=== PATIENT | male | born 1940 | race Caucasian/White ===

== ENCOUNTER 2016-09-15 07:45 | Inpatient (IN) | payer MEDICARE, OTHER ==
[~2016-09-15] VITALS: Ht 180.3 cm; Wt 66.1 kg
[2016-09-15] VITALS (8 sets, daily range): BP systolic 113–133; BP diastolic 62–75; PULSE 78–88; RESP 17–25; TEMP 97.5–98.6; O2SAT 92–97
[~2016-09-15 07:45] MED LIST: DOXY25S GT; SULF-154 GT; SULF1TAB47 GT
--- NOTE | 2016-09-15 08:08 | PD ---
HPI Chief Complaint: Respiratory Distress Time Seen by Provider: 07:55 Travel History International Travel<30 days: No Contact w/Intl Traveler<30days: No Traveled to known affect area: No History of Present Illness HPI The patient is a 75-year-old male who presents emergency department via EMS from the assisted for shortness of breath. 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 The patient states he developed shortness of breath yesterday, also complains of generalized pain. EMS provided the patient 2 albuterol treatments prior to arrival which improved the patient's symptoms. The patient denies any history of COPD, however, according to EMS the patient is chronically on 2 L of oxygen via nasal cannula. According to the assisted papers the patient complained of shortness of breath and was hypoxic after treatments at the assisted with an O2 sat of 90%. The patient also has been treated for rash over the last week which is somewhat pruritic. The patient denies any acute chest pain, nausea, vomiting, or abdominal pain. Patient is able to answer questions, speech is somewhat hard to understand, but the patient follows commands without difficulty. The patient's physician of record at the assisted is Dr. Shelley. [facility] Past Medical History Arthritis: No Asthma: No Autoimmune Disease: No Blood Disorders: No Anxiety: No Depression: Yes Heart Rhythm Problems: No Cancer: No Cardiovascular Problems: No High Cholesterol: Yes Chemotherapy: No Chest Pain: No Congestive Heart Failure: No COPD: No Cerebrovascular Accident: Yes Diabetes: Yes Endocrine: No GERD: Yes Glaucoma: No Genitourinary: No Headaches: No Hepatitis: No Hiatal Hernia: No Hypertension: Yes Immune Disorder: No Kidney Stones: No Musculoskeletal: No Neurologic: No Psychiatric: Yes Reproductive: No Respiratory: No Migraines: No Myocardial Infarction: No Radiation Therapy: No Renal Failure: No Seizures: No Sleep Apnea: No Thyroid Disease: No Ulcer: No Past Surgical History Abdominal Surgery: No AICD: No Appendectomy: No Arteriovenous Shunt: No Cardiac Surgery: No Cholecystectomy: No Ear Surgery: No Endocrine Surgery: No Genitourinary Surgery: No Gynecologic Surgery: No Insulin Pump: No Joint Replacement: No Oral Surgery: No Pacemaker: No Thoracic Surgery: No Tonsillectomy: Yes Social History Alcohol Use: No Tobacco Use: No Substance Use: No Allergies-Medications (Allergen,Severity, Reaction): Coded Allergies: Codeine (Verified Allergy, Severe, MAKES PT SLEEP "FOREVER" DOES NOT LIKE TO TAKE ANY FORM, 11/15/08) [place] Nut (Unverified Allergy, Unknown, 11/14/08) VERIFIED WITH PATIETN Uncoded Allergies: CODEINE (Allergy, Unknown, 01/09/03) NUTS (Allergy, Unknown, 01/09/03) Reported Meds & Prescriptions Reported Meds & Active Scripts Active Reported Reglan (Metoclopramide HCl) 5 Mg Tab 5 Mg PO QID Potassium Chloride ER (Potassium Chloride) 20 Meq Tab 20 Meq PO BID Poly-Iron 150 (Polysaccharide Iron Complex) 150 Mg Cap 150 Mg PO DAILY Novolog Inj (Insulin Aspart) 1,000 Unit/10 Ml Vial 0 SQ DIRECTED Sliding Scale as directed. Multiple Vitamin 1 Tab 1 Tab PO DAILY Mirtazapine 15 Mg Tab 15 Mg PO HS Metformin (Metformin HCl) 500 Mg Tab 500 Mg PO BIDPC With meals Lopressor Hct (Metoprolol-Hydrochlorothiazide) 50-25 Mg Tab 1 Tab PO DAILY Lisinopril 2.5 Mg Tab 2.5 Mg PO DAILY Ketoconazole Topical 2% Foam 1 Applic TOPICAL 2XWEEK Hydroxyzine HCl 25 Mg Tab 25 Mg PO QID Hydrocortisone Topical 1% Cream 1 Applic TOPICAL BID Hydrochlorothiazide 12.5 Mg Cap 12.5 Mg PO BID Guaifenesin ER 12 HR (Guaifenesin) 600 Mg Nancy 600 Mg PO BID Glucagon Emergency Inj Kit (Glucagon (Rdna) Inj Kit) 1 Mg Kit 1 Mg IM ONCE PRN Flomax (Tamsulosin HCl) 0.4 Mg Cap 0.4 Mg PO HS Erythromycin Ethylsuccinate Liq (Erythromycin Ethylsuccinate) 200 Mg/Ml Susp 200 Mg PO Q6H Clopidogrel (Clopidogrel Bisulfate) 75 Mg Tab 75 Mg PO DAILY Cormax Scalp Topical (Clobetasol Propionate) 0.05% Soln 1 Applic TOPICAL BID Baclofen 10 Mg Tab 10 Mg PO Q8HR PRN Ascorbic Acid 500 Mg Tab 500 Mg PO Review of Systems Except as stated in HPI: all other systems reviewed are Neg General / Constitutional: No: Fever HENT: No: Lightheadedness Cardiovascular: No: Chest Pain or Discomfort Respiratory: Positive: Shortness of Breath, No: Cough Gastrointestinal: No: Nausea, Vomiting, Abdominal Pain Skin: Positive Rash, Positive Itching Physical Exam Narrative GENERAL: Awake, alert, very pleasant 75-year-old male who appears his stated age and is in no obvious respiratory distress. SKIN: Focused skin assessment warm/dry. HEAD: Atraumatic. Normocephalic. EYES: No injection or drainage. ENT: No nasal bleeding or discharge. Dry mucous membranes.. NECK: Trachea midline. No JVD. CARDIOVASCULAR: Regular, heart rate in the 90s. RESPIRATORY: No accessory muscle use. Few scattered rhonchi in the bases bilateral. Few late expiratory wheezes in the upper lobes. GASTROINTESTINAL: Abdomen soft, non-tender, nondistended. Feeding tube in place. MUSCULOSKELETAL: Left BKA. Right lower extremity in a heel boot, previous amputation of the second toe. Full use of the left upper extremity. Right upper extremity is contracted at the elbow and wrist in flexion. Genitourinary: No erythema or drainage noted about the meatus. NEUROLOGICAL: Awake and alert. Speech is understandable, but mild dysarthria. Follows commands. Back: Stage I decubitus ulcer. PSYCHIATRIC: Appropriate mood and affect; insight and judgment normal. Data Data Last Documented VS Vital Signs Date Time Temp Pulse Resp B/P Pulse Ox O2 Delivery O2 Flow Rate FiO2 09/15/16 09:00 88 20 113/63 95 Nasal Cannula 3 09/15/16 07:50 98.6 Orders Complete Blood Count With Diff (09/15/16 08:02) Comprehensive Metabolic Panel (09/15/16 08:02) B-Type Natriuretic Peptide (09/15/16 08:02) Act Partial Throm Time (Ptt) (09/15/16 08:02) Prothrombin Time / Inr (Pt) (09/15/16 08:02) Magnesium (Mg) (09/15/16 08:02) Ckmb (Isoenzyme) Profile (09/15/16 08:02) Troponin I (09/15/16 08:02) Urinalysis - C+S If Indicated (09/15/16 08:02) Blood Culture (09/15/16 08:02) Iv Access Insert/Monitor (09/15/16 08:02) Electrocardiogram (09/15/16 08:02) Ecg Monitoring (09/15/16 08:02) Oximetry (09/15/16 08:02) Oxygen Administration (09/15/16 08:02) Chest, Single Ap (09/15/16 08:02) Cath For Specimen (09/15/16 08:02) Sodium Chloride 0.9% Flush (Ns Flush) (09/15/16 08:15) Albuterol-Ipratropium Neb (Duoneb Neb) (09/15/16 08:15) Lactic Acid (09/15/16 08:02) Furosemide Inj (Lasix Inj) (09/15/16 09:45) Aspirin (Aspirin) (09/15/16 10:30) Admit Order (Ed Use Only) (09/15/16 10:24) Labs Laboratory Tests Test 09/15/16 09/15/16 09/15/16 08:30 08:32 09:33 White Blood Count 9.4 TH/MM3 Red Blood Count 3.25 MIL/MM3 Hemoglobin 10.9 GM/DL Hematocrit 31.4 % Mean Corpuscular Volume 96.6 FL Mean Corpuscular Hemoglobin 33.6 PG Mean Corpuscular Hemoglobin 34.8 % Concent Red Cell Distribution Width 14.0 % Platelet Count 230 TH/MM3 Mean Platelet Volume 11.7 FL Neutrophils (%) (Auto) 81.3 % Lymphocytes (%) (Auto) 7.5 % Monocytes (%) (Auto) 9.0 % Eosinophils (%) (Auto) 1.5 % Basophils (%) (Auto) 0.7 % Neutrophils # (Auto) 7.7 TH/MM3 Lymphocytes # (Auto) 0.7 TH/MM3 Monocytes # (Auto) 0.9 TH/MM3 Eosinophils # (Auto) 0.1 TH/MM3 Basophils # (Auto) 0.1 TH/MM3 CBC Comment DIFF FINAL Differential Comment B-Type Natriuretic Peptide 1064 PG/ML Urine Color YELLOW Urine Turbidity CLEAR Urine pH 7.5 Urine Specific [place] 1.022 Urine Protein 30 mg/dL Urine Glucose (UA) NEG mg/dL Urine Ketones NEG mg/dL Urine Occult Blood NEG Urine Nitrite NEG Urine Bilirubin NEG Urine Urobilinogen 2.0 MG/DL Urine Leukocyte Esterase TRACE Urine RBC 1 /hpf Urine WBC 2 /hpf Urine Mucus FEW /lpf Microscopic Urinalysis Comment CULT NOT INDICATED Prothrombin Time 12.0 SEC Prothromb Time International 1.1 RATIO Ratio Activated Partial 24.8 SEC Thromboplast Time Sodium Level 137 MEQ/L Potassium Level 4.1 MEQ/L Chloride Level 102 MEQ/L Carbon Dioxide Level 27.4 MEQ/L Anion Gap 8 MEQ/L Blood Urea Nitrogen 36 MG/DL Creatinine 0.76 MG/DL Estimat Glomerular Filtration 100 ML/MIN Rate Random Glucose 171 MG/DL Lactic Acid Level 2.1 mmol/L Calcium Level 8.9 MG/DL Magnesium Level 2.1 MG/DL Total Bilirubin 0.4 MG/DL Aspartate Amino Transf 19 U/L (AST/SGOT) Alanine Aminotransferase 16 U/L (ALT/SGPT) Alkaline Phosphatase 84 U/L Total Creatine Kinase 95 U/L Troponin I 0.07 NG/ML Total Protein 7.6 GM/DL Albumin 3.0 GM/DL MDM Medical Decision Making Medical Screen Exam Complete: Yes Emergency Medical Condition: Yes Medical Record Reviewed: Yes Interpretation(s) EKG reveals normal sinus rhythm with a rate 87. Q wave noted in lead 2, 3, and aVF. Late transition in V5. Last Impressions Chest X-Ray 09/15/16 0802 Signed Impressions: Service Date/Time: Thursday, September 15, 2016 08:44 - CONCLUSION: Bibasilar infiltrates with cardiomegaly. The radiographic pattern suggests pulmonary edema. Sammy Byrnes Jr., MD Laboratory Tests Test 09/15/16 09/15/16 09/15/16 08:30 08:32 09:33 White Blood Count 9.4 TH/MM3 Red Blood Count 3.25 MIL/MM3 Hemoglobin 10.9 GM/DL Hematocrit 31.4 % Mean Corpuscular Volume 96.6 FL Mean Corpuscular Hemoglobin 33.6 PG Mean Corpuscular Hemoglobin 34.8 % Concent Red Cell Distribution Width 14.0 % Platelet Count 230 TH/MM3 Mean Platelet Volume 11.7 FL Neutrophils (%) (Auto) 81.3 % Lymphocytes (%) (Auto) 7.5 % Monocytes (%) (Auto) 9.0 % Eosinophils (%) (Auto) 1.5 % Basophils (%) (Auto) 0.7 % Neutrophils # (Auto) 7.7 TH/MM3 Lymphocytes # (Auto) 0.7 TH/MM3 Monocytes # (Auto) 0.9 TH/MM3 Eosinophils # (Auto) 0.1 TH/MM3 Basophils # (Auto) 0.1 TH/MM3 CBC Comment DIFF FINAL Differential Comment B-Type Natriuretic Peptide 1064 PG/ML Urine Color YELLOW Urine Turbidity CLEAR Urine pH 7.5 Urine Specific [place] 1.022 Urine Protein 30 mg/dL Urine Glucose (UA) NEG mg/dL Urine Ketones NEG mg/dL Urine Occult Blood NEG Urine Nitrite NEG Urine Bilirubin NEG Urine Urobilinogen 2.0 MG/DL Urine Leukocyte Esterase TRACE Urine RBC 1 /hpf Urine WBC 2 /hpf Urine Mucus FEW /lpf Microscopic Urinalysis Comment CULT NOT INDICATED Prothrombin Time 12.0 SEC Prothromb Time International 1.1 RATIO Ratio Activated Partial 24.8 SEC Thromboplast Time Sodium Level 137 MEQ/L Potassium Level 4.1 MEQ/L Chloride Level 102 MEQ/L Carbon Dioxide Level 27.4 MEQ/L Anion Gap 8 MEQ/L Blood Urea Nitrogen 36 MG/DL Creatinine 0.76 MG/DL Estimat Glomerular Filtration 100 ML/MIN Rate Random Glucose 171 MG/DL Lactic Acid Level 2.1 mmol/L Calcium Level 8.9 MG/DL Magnesium Level 2.1 MG/DL Total Bilirubin 0.4 MG/DL Aspartate Amino Transf 19 U/L (AST/SGOT) Alanine Aminotransferase 16 U/L (ALT/SGPT) Alkaline Phosphatase 84 U/L Total Creatine Kinase 95 U/L Troponin I 0.07 NG/ML Total Protein 7.6 GM/DL Albumin 3.0 GM/DL Differential Diagnosis Differential diagnosis includes pneumonia, bronchitis, aspiration, hypoxia, pulmonary embolism, pleural effusion, acute coronary syndrome, sepsis, UTI, dehydration, hyponatremia. Narrative Course IV was established, labs are drawn and sent, and the patient was placed on cardiac telemetry monitoring and continuous pulse oximetry monitoring. EKG was ordered and interpreted. Chest x-ray was obtained. The patient was administered DuoNeb 1. Lactic acid blood culture were sent to lab. Chest x- ray reveals bilateral pulmonary edema. Lactic acid minimally elevated at 2.1. The patient was administered Lasix 40 mg intravenously. The patient's BNP was greater than 1000, troponin was 0.07, most likely secondary to congestive heart failure. The patient was administered aspirin via the gastrostomy tube. The patient will be admitted for congestive heart failure with pulmonary edema, may require echocardiogram and diaphoresis. Therefore, the on-call medical service was paged for admission. Physician Communication Physician Communication The on-call medical service was paged for admission. I discussed the patient with the residents who agreed with admission. Diagnosis Primary Impression: Congestive heart failure Qualified Code: I50.9 - Acute congestive heart failure, unspecified congestive heart failure type Additional Impressions: Pulmonary edema Qualified Code: J81.0 - Acute pulmonary edema Hypoxia Elevated troponin Admitting Information Admitting Physician Requests: Admit Condition: Stable Ayo Krishna MD September 15, 2016 08:08
[2016-09-15] MEDS ORDERED: RESP: ALBUTEROL 2.5 MG/IPRATROPIUM 0.5 MG NEB (SCH) INH ONE (08:15)
[2016-09-15] MEDS ORDERED: SODIUM CHLORIDE 0.9% FLUSH 10 ML FLUSH IVF PRN (08:15)
[2016-09-15 08:47] LABS: AUTOMATED NEUTROPHIL # 7.7 TH/MM3 (1.8-7.7); BASOPHIL # 0.1 TH/MM3 (0-0.2); BASOPHIL % 0.7 % (0.0-2.0); EOSINOPHIL # 0.1 TH/MM3 (0-0.4); EOSINOPHIL % 1.5 % (0.0-4.0); HEMATOCRIT 31.4 % (39.0-51.0); HEMO FLAGS DIFF FINAL; LYMPH % 7.5 % (9.0-44.0); LYMPHOCYTE # 0.7 TH/MM3 (1.0-4.8); MEAN CELL VOLUME 96.6 FL (80.0-100.0); MEAN CORPUSCULAR HEMOGLOBIN 33.6 PG (27.0-34.0); MEAN CORPUSCULAR HGB CONC 34.8 % (32.0-36.0); NEUT % 81.3 % (16.0-70.0); PLATELET COUNT 230 TH/MM3 (150-450); RED BLOOD COUNT 3.25 MIL/MM3 (4.50-5.90); WHITE BLOOD COUNT 9.4 TH/MM3 (4.0-11.0)
[2016-09-15 09:01] LABS: BLOOD, URINE NEG (NEG); COMMENT (UR) CULT NOT INDICATED; CULTURE IF INDICATED CULT NOT INDICATED; GLUCOSE,URINE NEG (NEG); KETONE, URINE NEG (NEG); MUCUS URINE FEW /lpf (OCC); NITRITE,URINE NEG (NEG); PH, URINE 7.5 (5.0-8.5); URINE COLOR YELLOW (YELLW/STRAW)
--- NOTE | 2016-09-15 09:28 | RADRPT ---
EXAM DATE/TIME: 09/15/2016 08:44 [place] COMPARISON: No previous studies available for comparison. INDICATIONS : Congestion, short of breath. MEDICAL HISTORY : Stroke. SURGICAL HISTORY : Left leg BKA ENCOUNTER: Initial ACUITY: 1 day PAIN SCORE: Non-responsive. LOCATION: Bilateral chest FINDINGS: A single portable frontal view of the chest shows bilateral predominantly basilar infiltrates. Heart is enlarged. Pulmonary vascular engorgement noted. CONCLUSION: Bibasilar infiltrates with cardiomegaly. The radiographic pattern suggests pulmonary edema. Sammy Byrnes Jr., MD on September 15, 2016 at 9:18 Board Certified Radiologist. This report was verified electronically.
[2016-09-15] MEDS ORDERED: FUROSEMIDE 40 MG/4 ML VIAL IV PUSH ONE (09:45)
[2016-09-15] MEDS ORDERED: CLOP75TA PO (10:03)
[2016-09-15] MEDS ORDERED: TAMS5CAP PO (10:03)
[2016-09-15] MEDS ORDERED: ASCO500T PO (10:03)
[2016-09-15] MEDS ORDERED: ERYT1SUS5 PO (10:03)
[2016-09-15] MEDS ORDERED: BACL10TA PO (10:03)
[2016-09-15] MEDS ORDERED: CLOB-23 TOPICAL (10:03)
[2016-09-15] MEDS ORDERED: HYDR-3133 PO (10:08)
[2016-09-15] MEDS ORDERED: HYDR12.57 PO (10:08)
[2016-09-15] MEDS ORDERED: GUAI1TAB3 PO (10:08)
[2016-09-15] MEDS ORDERED: METF500T PO (10:08)
[2016-09-15] MEDS ORDERED: LISI2.5T3 PO (10:08)
[2016-09-15] MEDS ORDERED: NOVOLOGP2 SQ (10:08)
[2016-09-15] MEDS ORDERED: LOPR50TA PO (10:08)
[2016-09-15] MEDS ORDERED: MIRTA15 PO (10:08)
[2016-09-15] MEDS ORDERED: MULTTAB67 PO (10:08)
[2016-09-15] MEDS ORDERED: NU-IRON PO (10:08)
[2016-09-15] MEDS ORDERED: POTA-163 PO (10:08)
[2016-09-15] MEDS ORDERED: HYDR1CRE TOPICAL (10:08)
[2016-09-15] MEDS ORDERED: REGL5TAB PO (10:08)
[2016-09-15] MEDS ORDERED: GLUC1KIT IM (10:08)
[2016-09-15] MEDS ORDERED: KETO2AER TOPICAL (10:08)
[2016-09-15 10:10] LABS: ANION GAP 8 MEQ/L (5-15); APTT (PATIENT) 24.8 SEC (24.3-30.1); AST (GOT) 19 U/L (15-37); BICARBONATE 27.4 MEQ/L (21.0-32.0); BLOOD UREA NITROGEN 36 MG/DL (7-18); CHLORIDE 102 MEQ/L (98-107); GLOMERULAR FILTRATION RATE 100 ML/MIN (>89); INTERNATIONAL NORMALIZED RATIO 1.1 RATIO; MAGNESIUM 2.1 MG/DL (1.5-2.5); POTASSIUM 4.1 MEQ/L (3.5-5.1); SODIUM (NA) 137 MEQ/L (136-145)
[2016-09-15 10:15] LABS: ALKALINE PHOSPHATASE 84 U/L (45-117); ALT (GPT) 16 U/L (12-78); TOTAL BILIRUBIN ADULT 0.4 MG/DL (0.2-1.0)
[2016-09-15 10:19] LABS: CREATINE KINASE 95 U/L (39-308)
[2016-09-15] MEDS ORDERED: ASPIRIN 325 MG TAB G-TUBE ONE (10:30)
--- NOTE | 2016-09-15 12:59 | HHI.HP ---
HPI Service Family Medicine Primary Care Physician Unknown Admission Diagnosis congestive heart failure, pulmonary edema, hypoxia, elevated troponi Diagnoses: International Travel<30 Days: No Contact w/Intl Traveler<30days: No Known Affected Area: No History of Present Illness 75-year-old male [place] [facility] resident [facility] presents with a one to 2 day history of difficulty breathing. Patient is hemiplegic and normally gets around in a wheelchair. He states his symptoms started yesterday while lying in bed in the morning. Normally he lays flat on his right side. In the morning , however, while lying in bed he states he had difficulty breathing. Throughout the day this continued to worsen and he was becoming more short of breath and diaphoretic. I spoke with the nurse at the facility who gives a similar story. Can you to have difficulty breathing and it was determined to come to the emergency room. Of note, the patient has been having a rash for the last week or so involving his upper chest and extremities. A dermatology consult was placed and was said to be performed on 09/16. Patient stated he last had chest pain approximately 2 weeks ago. At that time it was 5 out of 10. Currently not having any chest pain. 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 Multiple Vitamin 1 Tab 1 Tab PO DAILY Mirtazapine 15 Mg Tab 15 Mg PO HS Metformin (Metformin HCl) 500 Mg Tab 500 Mg PO BIDPC With meals Lopressor Hct (Metoprolol-Hydrochlorothiazide) 50-25 Mg Tab 1 Tab PO DAILY Lisinopril 2.5 Mg Tab 2.5 Mg PO DAILY Ketoconazole Topical 2% Foam 1 Applic TOPICAL 2XWEEK Hydroxyzine HCl 25 Mg Tab 25 Mg PO QID Hydrocortisone Topical 1% Cream 1 Applic TOPICAL BID Hydrochlorothiazide 12.5 Mg Cap 12.5 Mg PO BID Guaifenesin ER 12 HR (Guaifenesin) 600 Mg Nancy 600 Mg PO BID Glucagon Emergency Inj Kit (Glucagon (Rdna) Inj Kit) 1 Mg Kit 1 Mg IM ONCE PRN Flomax (Tamsulosin HCl) 0.4 Mg Cap 0.4 Mg PO HS Erythromycin Ethylsuccinate Liq (Erythromycin Ethylsuccinate) 200 Mg/Ml Susp 200 Mg PO Q6H Clopidogrel (Clopidogrel Bisulfate) 75 Mg Tab 75 Mg PO DAILY [place]ax Scalp Topical (Clobetasol Propionate) 0.05% Soln 1 Applic TOPICAL BID Baclofen 10 Mg Tab 10 Mg PO Q8HR PRN Ascorbic Acid 500 Mg Tab 500 Mg PO (Young Bergeron MD R2) Allergies: Coded Allergies: Codeine (Verified Allergy, Severe, MAKES PT SLEEP "FOREVER" DOES NOT LIKE TO TAKE ANY FORM, 11/15/08) [place] Nut (Unverified Allergy, Unknown, 11/14/08) VERIFIED WITH PATIETN Uncoded Allergies: CODEINE (Allergy, Unknown, 01/09/03) NUTS (Allergy, Unknown, 01/09/03) Social History Lives in [facility]. Never . [employer]ism. 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 (Young Bergeron MD R2) Physical Exam Vital Signs Vital Signs Date Time Temp Pulse Resp B/P Pulse Ox O2 Delivery O2 Flow Rate FiO2 09/15/16 12:00 82 17 118/66 95 Nasal Cannula 3 09/15/16 10:00 80 17 113/62 93 Nasal Cannula 3 09/15/16 09:00 88 20 113/63 95 Nasal Cannula 3 09/15/16 08:20 96 Nasal Cannula 3 09/15/16 08:12 94 Nasal Cannula 3.00 09/15/16 07:50 87 25 93 Nasal Cannula 3 09/15/16 07:50 98.6 87 25 133/75 92 Physical Exam GENERAL: Elderly male with obvious contracture side lying comfortably, no acute distress SKIN: Stage I decubitus low back. Diffuse pruritic rash upper chest and upper arm. HEAD: Atraumatic. Normocephalic. No temporal or scalp tenderness. EYES: Pupils equal round and reactive. Extraocular motions intact. No scleral icterus. No injection or drainage. NECK: Trachea midline. No JVD or lymphadenopathy. Supple, nontender, no meningeal signs. CARDIOVASCULAR: Regular rate and rhythm. No murmurs rubs or gallops. RESPIRATORY:Scattered bilateral rhonchi in the bases bilaterally GASTROINTESTINAL: Abdomen soft, non-tender, nondistended. No hepato-splenomegaly , or palpable masses. No guarding. Gastrostomy tube in place without surrounding erythema. MUSCULOSKELETAL: Contracture of right arm. Full use of left upper extremity. Left BKA. Right lower extremity in heel boot. Amputation of second toe NEUROLOGICAL: Awake and alert. Appropriate insight and judgment. Follows commands. Speech understandable but slow. Mild dysarthria. Laboratory Laboratory Tests Test 09/15/16 09/15/16 09/15/16 08:30 08:32 09:33 White Blood Count 9.4 Red Blood Count 3.25 Hemoglobin 10.9 Hematocrit 31.4 Mean Corpuscular Volume 96.6 Mean Corpuscular Hemoglobin 33.6 Mean Corpuscular Hemoglobin 34.8 Concent Red Cell Distribution Width 14.0 Platelet Count 230 Mean Platelet Volume 11.7 Neutrophils (%) (Auto) 81.3 Lymphocytes (%) (Auto) 7.5 Monocytes (%) (Auto) 9.0 Eosinophils (%) (Auto) 1.5 Basophils (%) (Auto) 0.7 Neutrophils # (Auto) 7.7 Lymphocytes # (Auto) 0.7 Monocytes # (Auto) 0.9 Eosinophils # (Auto) 0.1 Basophils # (Auto) 0.1 CBC Comment DIFF FINAL Differential Comment B-Type Natriuretic Peptide 1064 Urine Color YELLOW Urine Turbidity CLEAR Urine pH 7.5 Urine Specific [place] 1.022 Urine Protein 30 Urine Glucose (UA) NEG Urine Ketones NEG Urine Occult Blood NEG Urine Nitrite NEG Urine Bilirubin NEG Urine Urobilinogen 2.0 Urine Leukocyte Esterase TRACE Urine RBC 1 Urine WBC 2 Urine Mucus FEW Microscopic Urinalysis Comment CULT NOT INDICATED Prothrombin Time 12.0 Prothromb Time International 1.1 Ratio Activated Partial 24.8 Thromboplast Time Sodium Level 137 Potassium Level 4.1 Chloride Level 102 Carbon Dioxide Level 27.4 Anion Gap 8 Blood Urea Nitrogen 36 Creatinine 0.76 Estimat Glomerular Filtration 100 Rate Random Glucose 171 Lactic Acid Level 2.1 Calcium Level 8.9 Magnesium Level 2.1 Total Bilirubin 0.4 Aspartate Amino Transf 19 (AST/SGOT) Alanine Aminotransferase 16 (ALT/SGPT) Alkaline Phosphatase 84 Total Creatine Kinase 95 Troponin I 0.07 Total Protein 7.6 Albumin 3.0 Date/Time Procedure Status Source Growth 09/15/16 08:30 Aerobic Blood Culture Received Blood Peripheral Pending 09/15/16 08:30 Anaerobic Blood Culture Received Blood Peripheral Pending (Young Bergeron MD R2) Result Diagram: 09/15/1630 09/15/16 0933 Imaging Last Impressions Chest X-Ray 09/15/16801 Signed Impressions: Service Date/Time: Thursday, September 15, 2016 08:44 - CONCLUSION: Bibasilar infiltrates with cardiomegaly. The radiographic pattern suggests pulmonary edema. Sammy Byrnes Jr., MD (Young Bergeron MD R2) Assessment and Plan Assessment and Plan 75-year-old [place] [facility] resident presents with one-day history of shortness of breath, fluid overload on chest x-ray. Concern for CHF exacerbation. Plan as below. Code Status Full Discussed Condition With Dr. Mckinnon (Young Bergeron MD R2) Attending Attestation Patient seen and examined. Case reviewed and discussed with the resident team. Agree with plan of care as discussed with me and documented in the resident note. pt seen in ED on admission (Susana Mckinnon MD) Problem List: (1) CHF exacerbation Status: Acute Plan: Findings and presentation concerning for CHF exacerbation. Cardiology consult to help with medication management. Patient received 40 mg IV Lasix in the emergency room. 2-D echo Oxygen as needed. Lasix 40 mg IV twice a day Patient is already on beta kev, CLAUDIA inhibitor, as below. Pending echo results, patient may need spironolactone and/or digoxin Trend troponins and EKGs 3 PM and 9 PM. Bed elevated 30-45. Daily weights and I's/O's (2) Hemiplegia Status: Acute Plan: Out of bed to chair 3 times a day. Physical therapy consult (3) Rash Status: Acute Plan: Unclear etiology at this time. Patient had a dermatology consult for tomorrow. He will not be able to make that. He has been getting hydrocortisone lotion at the [place] [facility]. (4) Stage 1 skin ulcer of sacral region Status: Acute Plan: Wound care nursing. Offload sacrum and heel Out of bed to chair 3 times a day PT consult (5) FEN/PPX Status: Acute Plan: Fluids: Hep-Lock IV as patient is fluid overloaded. Electrolytes: Monitor and replace when necessary Nutrition: Dietitian consult. Gastrostomy tube per dietitian. Normally patient gets Isosource 1.5 at 85 mL per hour 16 hours (on it 2 AMoff at 6 AM) Prophylaxis: Lovenox, SCD Chronic medical problems: Muscle spasm: Continue baclofen 10 mg History of stroke: Continue Plavix 75 mg daily Diabetes: Sliding scale insulin while inpatient. Adjust as needed. Hold home metformin High blood pressure: Continue hydrochlorothiazide 12.5 mg twice a day. Lisinopril 2.5 mg daily. Lopressor 25 mg twice a day. BPH: Continue Flomax Depression: Continue mirtazapine 15 mg Esophageal reflux: Continue Reglan 5 mg (Young Bergeron MD R2) Physician Certification 2 Midnight Certification Type: Admission for Inpatient Services Order for Inpatient Services The services are ordered in accordance with Medicare regulations or non- Medicare payer requirements, as applicable. In the case of services not specified as inpatient-only, they are appropriately provided as inpatient services in accordance with the 2-midnight benchmark. Estimated LOS (days): 2 days is the estimated time the patient will need to remain in the hospital, assuming treatment plan goals are met and no additional complications. Post-Hospital [facility] (Young Bergeron MD R2) Problem Qualifiers (1) CHF exacerbation: Qualified Code: I50.9 - Acute on chronic congestive heart failure, unspecified congestive heart failure type (2) Hemiplegia: Qualified Code: I69.151 - Hemiplegia of right dominant side due to nontraumatic intraparenchymal hemorrhage of brain, unspecified hemiplegia type Young Bergeron MD R2 September 15, 2016 12:59 Susana Mckinnon MD September 16, 2016 13:40
[2016-09-15] MEDS ORDERED: SODIUM CHLORIDE 0.9% FLUSH 10 ML FLUSH IV FLUSH PRN (14:00)
[2016-09-15] MEDS ORDERED: BACLOFEN 10 MG TAB PO PRN (14:30)
[2016-09-15] MEDS ORDERED: GLUCAGON 1 MG/ML VIAL OTHER PRN (14:45)
[2016-09-15] MEDS ORDERED: DEXTROSE 50% IN WATER 50 ML VIAL(D50) IV PRN (14:45)
[2016-09-15] MEDS: INSULIN ASPART SUPPLEMENTAL SCALE SQ SCH ×2 (16:00→21:00)
[2016-09-15] MEDS: FUROSEMIDE 40 MG/4 ML VIAL IVP SCH (16:34)
[2016-09-15] MEDS: hydrOXYzine HCL 25 MG TAB PO SCH ×2 (16:34→21:01)
[2016-09-15] MEDS: METOCLOPRAMIDE HCL 10 MG TAB PO SCH ×2 (16:34→21:00)
[2016-09-15] MEDS: ENOXAPARIN SODIUM 40 MG/0.4 ML SYRINGE SQ SCH (16:34)
[2016-09-15] MEDS: ERYTHROMYCIN ETHYLSUCCINATE 200 MG/5 ML SUSP 100 ML BOTTLE PO SCH ×2 (16:34→22:02)
--- NOTE | 2016-09-15 18:29 | MB ---
cc: DANIELE MOHR MD DATE OF CONSULTATION: 09/15/2016 REASON FOR CONSULTATION: 1. Congestive heart failure 2. Elevated troponin. HISTORY OF PRESENT ILLNESS: Mr. López is a 75 year-old man who is a [facility] resident of [facility] and presented with two days difficulty breathing. He is a difficult historian but does indicate that he has some difficulty breathing and is now back to normal. He denies any prior cardiac history, specifically denied any coronary artery disease or prior cardiac intervention to me. PAST MEDICAL HISTORY: 1. 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 2. Dysphagia. 3. Peripheral vascular disease. 4. Hyperlipidemia 5. Coronary artery disease. 6. Diabetes. 7. Hypertension. 8. Gastroesophageal reflux disease. 9. Depression. OUTPATIENT MEDICATIONS: 1. Reportedly include; Reglan. 2. Potassium. 3. Novolin 4. Metformin 5. Lopressor 6. Lisinopril 7. Ketoconazole 8. Hydrochlorothiazide 9. Hydrocortisone 10. Flomax 11. Glucagon 12. Erythromycin 13. Plavix. ALLERGIES CODEINE BRAZIL NUTS. SOCIAL HISTORY/FAMILY HISTORY/ REVIEW OF SYSTEMS: Per the record. PHYSICAL EXAMINATION: VITAL SIGNS: Temperature 97.5, pulse 84, respirations 20, blood pressure 125/72. IN GENERAL: He is an elderly man who is in no apparent distress. NECK: His neck is free from jugular venous distention. LUNGS: The lungs are bilaterally clear to auscultation. CARDIOVASCULAR SYSTEM: He has normal S1, S2, did not appreciate any murmurs rubs or gallops. ABDOMEN: The abdomen is soft. EXTREMITIES: The extremities are free from edema. RADIOLOGIC: X-ray show bibasilar infiltrate with cardiomegaly. LABORATORY VALUES: Significant for hemoglobin of 10.9, troponin of 0.07 with B-type natriuretic peptide of 106.4 and creatinine of 0.76. Electrocardiogram shows normal sinus rhythm with left axis deviation and a late transition. IMPRESSIONS: 1. Congestive heart failure; the patient does not have any prior cardiac history that he is able to convey to me. He does present with symptoms, chest x-ray, consistent with congestive heart failure. At this point I do agree with conservative measures and obtaining an echocardiogram. I do not believe that the patient is truly a revascularization candidate. The minor troponin elevation is also consistent with congestive heart failure. 2. History of cerebrovascular accident, being managed by primary team. 3. Hypertension; appears to be reasonably controlled at this time. Camryn Karimi /6:11 PM /6:20 PM
--- NOTE | 2016-09-15 20:01 | EC ---
Study Study Date:09/15/2016 STUDY CONCLUSIONS SUMMARY - Left ventricle: There is anteroapical akinesis and thinning, suggestive of scar. The cavity size was normal. Wall thickness was normal. Systolic function was moderately to severely reduced. The estimated ejection fraction was in the range of 30% to 35%. - Mitral valve: Mildly calcified annulus. Mild regurgitation. - Tricuspid valve: Mild regurgitation. If LV function is below 40, please consider prescribing an ACEI or ARB or document rationale for non-use. PROCEDURE DATA STUDY STATUS: Elective. Procedure: Transthoracic echocardiography. Image quality was fair. Scanning was performed from the parasternal and apical acoustic windows. Study completion: The patient tolerated the procedure well. Transthoracic echocardiography. M-mode, complete 2D, complete spectral Doppler, and color Doppler. Patient status: Inpatient. CARDIAC ANATOMY LEFT VENTRICLE: There is anteroapical akinesis and thinning, suggestive of scar. The cavity size was normal. Wall thickness was normal. Systolic function was moderately to severely reduced. The estimated ejection fraction was in the range of 30% to 35%. AORTIC VALVE: Trileaflet; normal thickness leaflets. Doppler: Transvalvular velocity was within the normal range. There was no stenosis. No regurgitation. Mean gradient: 4mm Hg (S). AORTA: Aortic root: The aortic root was normal in size. MITRAL VALVE: Mildly calcified annulus. Doppler: Transvalvular velocity was within the normal range. There was no evidence for stenosis. Mild regurgitation. Mean gradient: 2mm Hg (D). Peak gradient: 6mm Hg (D). LEFT ATRIUM: The atrium was normal in size. RIGHT VENTRICLE: The cavity size was normal. Wall thickness was normal. PULMONIC VALVE: Doppler: Transvalvular velocity was within the normal range. There was no evidence for stenosis. No regurgitation. TRICUSPID VALVE: Structurally normal valve. Doppler: Transvalvular velocity was within the normal range. Mild regurgitation. PULMONARY ARTERY: The main pulmonary artery was normal-sized. Systolic pressure was within the normal range. RIGHT ATRIUM: The atrium was normal in size. PERICARDIUM: There was no pericardial effusion. SYSTEMIC VEINS: Inferior vena cava: The vessel was normal in size. BASIC MEASUREMENTS ADULT Normal Left ventricle LV internal dimension, ED, chordal level, *54.1 mm 43-52 PLAX LV internal dimension, ES, chordal level, *46 mm 23-38 PLAX Fractional shortening, chordal level, PLAX *15 % >29 LV posterior wall thickness, ED 5.61 mm IVS/LVPW ratio, ED *1.53 <1.3 Ventricular septum Septal thickness, ED 8.59 mm Left atrium Anterior-posterior dimension 33 mm Right ventricle RV internal dimension, ED, PLAX 20 mm 19-38 DOPPLER MEASUREMENTS ADULT Normal Aortic valve Peak velocity, S 151 cm/s Mean velocity, S 96.7 cm/s VTI, S 44.6 cm Mean gradient, S 4 mm Hg Mitral valve Peak E-wave velocity 81.4 cm/s Peak A-wave velocity 75 cm/s Mean velocity, D 61.2 cm/s Mean gradient, D 2 mm Hg Peak gradient, D 6 mm Hg Peak E/A ratio 1.1 Maximal regurgitant velocity 375 cm/s Tricuspid valve Regurgitant peak velocity 365 cm/s Peak RV-RA gradient, S 53 mm Hg Maximal regurgitant velocity 365 cm/s LEGEND: Mean values are shown as u=mean value. Asterisk (*) man values outside specified normal range. Prepared and signed by Tala Bernard [id number]
[2016-09-15] MEDS: POTASSIUM CHLORIDE 20 MEQ CONTROLLED RELEASE TAB PO SCH (21:00)
[2016-09-15] MEDS: SODIUM CHLORIDE 0.9% FLUSH 10 ML FLUSH IV FLUSH SCH (21:00)
[2016-09-15] MEDS: HYDROCORTISONE 1% CREAM 30 GM TOPICAL SCH (21:00)
[2016-09-15] MEDS: MIRTAZAPINE 15 MG TAB PO SCH (21:00)
[2016-09-15] MEDS ORDERED: [UNRECOGNIZED DRUG - OTHER] TOPICAL SCH (21:00)
[2016-09-15] MEDS ORDERED: HYDROCHLOROTHIAZIDE 12.5 MG CAP PO SCH (21:00)
[2016-09-15] MEDS ORDERED: PATIENT OWN MEDICATION TOPICAL SCH (21:00)
[2016-09-15] MEDS: TAMSULOSIN HCL 0.4 MG CAP PO SCH (21:01)
[2016-09-16] VITALS (11 sets, daily range): BP systolic 104–158; BP diastolic 50–75; PULSE 72–98; RESP 16–20; TEMP 98.2–98.7; O2SAT 92–97
[2016-09-16] MEDS: ERYTHROMYCIN ETHYLSUCCINATE 200 MG/5 ML SUSP 100 ML BOTTLE PO SCH ×4 (05:45→21:44)
[2016-09-16] MEDS: INSULIN ASPART SUPPLEMENTAL SCALE SQ SCH ×4 (05:47→21:00)
[2016-09-16 05:57] LABS: AUTOMATED NEUTROPHIL # 3.9 TH/MM3 (1.8-7.7); BASOPHIL % 0.7 % (0.0-2.0); EOSINOPHIL # 0.7 TH/MM3 (0-0.4); EOSINOPHIL % 10.4 % (0.0-4.0); HEMATOCRIT 29.2 % (39.0-51.0); HEMO FLAGS DIFF FINAL; LYMPH % 14.3 % (9.0-44.0); LYMPHOCYTE # 0.9 TH/MM3 (1.0-4.8); MEAN CELL VOLUME 97.1 FL (80.0-100.0); MONO % 13.3 % (0.0-8.0); NEUT % 61.3 % (16.0-70.0); PLATELET COUNT 181 TH/MM3 (150-450); RED BLOOD COUNT 3.01 MIL/MM3 (4.50-5.90); RED CELL DISTRIBUTION WIDTH 13.8 % (11.6-17.2); WHITE BLOOD COUNT 6.4 TH/MM3 (4.0-11.0)
[2016-09-16 06:21] LABS: ALKALINE PHOSPHATASE 67 U/L (45-117); ALT (GPT) 14 U/L (12-78); ANION GAP 8 MEQ/L (5-15); AST (GOT) 19 U/L (15-37); BICARBONATE 32.5 MEQ/L (21.0-32.0); BLOOD UREA NITROGEN 31 MG/DL (7-18); CHLORIDE 102 MEQ/L (98-107); GLOMERULAR FILTRATION RATE 108 ML/MIN (>89); POTASSIUM 3.5 MEQ/L (3.5-5.1); SODIUM (NA) 142 MEQ/L (136-145); TOTAL BILIRUBIN ADULT 0.4 MG/DL (0.2-1.0)
[2016-09-16] MEDS ORDERED: POTASSIUM CHLORIDE 20 MEQ PWD PACKET G-TUBE ONE (08:00)
[2016-09-16] MEDS ORDERED: KETOCONAZOLE 2% SHAMPOO 120 ML BTL TOPICAL SCH (09:00)
[2016-09-16] MEDS ORDERED: METOPROLOL HYDROCHLOROTHIAZIDE PO SCH (09:00)
[2016-09-16] MEDS ORDERED: HYDROCHLOROTHIAZIDE 25 MG TAB PO SCH (09:00)
[2016-09-16] MEDS: POLYSACCHARIDE IRON COMPLEX 150 MG CAP PO SCH (09:01)
[2016-09-16] MEDS: hydrOXYzine HCL 25 MG TAB PO SCH ×4 (09:01→21:43)
[2016-09-16] MEDS: LISINOPRIL 5 MG TAB PO SCH (09:02)
[2016-09-16] MEDS: CLOPIDOGREL 75 MG TAB PO SCH (09:02)
[2016-09-16] MEDS: METOPROLOL TARTRATE 50 MG TAB PO SCH (09:02)
[2016-09-16] MEDS: POTASSIUM CHLORIDE 20 MEQ CONTROLLED RELEASE TAB PO SCH ×2 (09:02→21:00)
[2016-09-16] MEDS: METOCLOPRAMIDE HCL 10 MG TAB PO SCH (09:02)
[2016-09-16] MEDS: SODIUM CHLORIDE 0.9% FLUSH 10 ML FLUSH IV FLUSH SCH ×2 (09:02→21:00)
[2016-09-16] MEDS: FUROSEMIDE 40 MG/4 ML VIAL IVP SCH ×2 (09:02→18:09)
[2016-09-16] MEDS: HYDROCORTISONE 1% CREAM 30 GM TOPICAL SCH ×2 (09:03→21:46)
--- NOTE | 2016-09-16 10:44 | EKG ---
Date Performed: 09/15/2016 Time Performed: 20:34:26 PTAGE: 75 years EKG: Sinus rhythm POSSIBLE LEFT ATRIAL ENLARGEMENT INFERIOR MYOCARDIAL INFARCTION , PROBABLY OLD ANTEROSEPTAL MYOCARDI AL INFARCTION , OF INDETERMINATE AGE ABNORMAL ECG PREVIOUS TRACING : 09/15/2016 08.46 DOCTOR: William Leblanc Interpretating Date/Time 09/16/2016 10:42:08
--- NOTE | 2016-09-16 11:18 | HHI.HP ---
HPI Service Family Medicine Primary Care Physician Unknown Admission Diagnosis congestive heart failure, pulmonary edema, hypoxia, elevated troponi Diagnoses: (1) CHF exacerbation Diagnosis: Principal (2) Hemiplegia Diagnosis: Principal (3) Rash Diagnosis: Principal (4) Stage 1 skin ulcer of sacral region Diagnosis: Principal (5) FEN/PPX Diagnosis: Principal International Travel<30 Days: No Contact w/Intl Traveler<30days: No Known Affected Area: No History of Present Illness Mr López is a 75-year-old male [facility] resident of [facility] who presented with a one to 2 day history of difficulty breathing. Patient is hemiplegic and normally gets around in a wheelchair. He states his symptoms started the day before admission while lying in bed in the morning. Normally he lays flat on his right side. In the morning, however, while lying in bed he states he had difficulty breathing. Throughout the day this continued to worsen and he was becoming more short of breath and diaphoretic. I spoke with the nurse at the facility who gives a similar story. It was determined to come to the emergency room. Of note, the patient has been having a rash for the last week or so involving his upper chest and extremities. A dermatology consult was placed and was said to be performed on 09/16. Patient stated he last had chest pain approximately 2 weeks ago. At that time it was 5 out of 10. Currently not having any chest pain. Overnight, he has some diuresis and is breathing better. He is difficult to understand well but is more concerned with his rash today than his breathing. Review of Systems Other ROS Limitations: Speech Impaired, Poor Historian Constitutional: COMPLAINS OF: Chills, DENIES: Fever Eyes: DENIES: Blurred vision, Diplopia Respiratory: COMPLAINS OF: Cough, Shortness of breath Cardiovascular: COMPLAINS OF: Chest pain Gastrointestinal: COMPLAINS OF: Nausea, DENIES: Abdominal pain, Constipation, Diarrhea, Vomiting Neurologic: DENIES: Abnormal gait, Headache Psychiatric: DENIES: Anxiety, Confusion Past Family Social History Past Medical History Hemiplegia and hemiparesis following CVA affecting right side Dysphagia Peripheral vascular disease Contracture right hand Hyperlipidemia CAD Type 2 diabetes Hypertension GERD with esophagitis Major depressive disorder Anemia Gastrostomy tube Past Surgical History Gastrostomy tube Allergies: Coded Allergies: Codeine (Verified Allergy, Severe, MAKES PT SLEEP "FOREVER" DOES NOT LIKE TO TAKE ANY FORM, 11/15/08) [place] Nut (Unverified Allergy, Unknown, 11/14/08) VERIFIED WITH PATIETN Uncoded Allergies: CODEINE (Allergy, Unknown, 01/09/03) NUTS (Allergy, Unknown, 01/09/03) Social History Lives in [facility]. Never . Taoism. 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 Physical Exam Vital Signs Vital Signs Date Time Temp Pulse Resp B/P Pulse Ox O2 Delivery O2 Flow Rate FiO2 09/16/16 08:12 98.5 90 18 158/74 94 09/16/16 04:00 98.2 98 20 104/50 92 09/16/16 04:00 Nasal Cannula 3.00 09/16/16 00:00 Nasal Cannula 3.00 09/16/16 00:00 98.5 82 18 114/57 95 09/15/16 20:00 98.3 83 18 114/65 96 09/15/16 20:00 80 09/15/16 20:00 Nasal Cannula 3.00 09/15/16 16:52 78 09/15/16 16:00 97.5 84 20 125/72 97 09/15/16 15:50 Nasal Cannula 3.00 09/15/16 12:00 82 17 118/66 95 Nasal Cannula 3 Physical Exam GENERAL: Elderly male with obvious contracture side lying comfortably, no acute distress SKIN: Stage I decubitus low back. Diffuse pruritic rash upper chest and upper arms as well as legs and back. macular papular with some areas of excoriation. HEAD: Atraumatic. Normocephalic. EYES: Pupils equal round and reactive. Extraocular motions intact. No scleral icterus. No injection or drainage. NECK: Trachea midline. No JVD or lymphadenopathy. Supple, nontender, no meningeal signs. CARDIOVASCULAR: Regular rate and rhythm. No murmurs rubs or gallops. RESPIRATORY:Scattered bilateral rhonchi in the bases bilaterally GASTROINTESTINAL: Abdomen soft, non-tender, nondistended. No hepato-splenomegaly , or palpable masses. No guarding. Gastrostomy tube in place without surrounding erythema. MUSCULOSKELETAL: Contracture of right arm. Full use of left upper extremity. Left BKA. Right lower extremity in heel boot. Amputation of second toe NEUROLOGICAL: Awake and alert. Appropriate insight and judgment. Follows commands. Speech understandable but slow. Mild dysarthria. somewhat difficult to understand his spontaneous speech Laboratory Laboratory Tests Test 09/15/16 09/16/16 09/16/16 09/16/16 18:25 00:45 03:10 05:10 Troponin I 0.10 0.11 White Blood Count 6.4 Red Blood Count 3.01 Hemoglobin 9.9 Hematocrit 29.2 Mean Corpuscular Volume 97.1 Mean Corpuscular Hemoglobin 33.0 Mean Corpuscular Hemoglobin 34.0 Concent Red Cell Distribution Width 13.8 Platelet Count 181 Mean Platelet Volume 11.1 Neutrophils (%) (Auto) 61.3 Lymphocytes (%) (Auto) 14.3 Monocytes (%) (Auto) 13.3 Eosinophils (%) (Auto) 10.4 Basophils (%) (Auto) 0.7 Neutrophils # (Auto) 3.9 Lymphocytes # (Auto) 0.9 Monocytes # (Auto) 0.8 Eosinophils # (Auto) 0.7 Basophils # (Auto) 0.0 CBC Comment DIFF FINAL Differential Comment Sodium Level 142 Potassium Level 3.5 Chloride Level 102 Carbon Dioxide Level 32.5 Anion Gap 8 Blood Urea Nitrogen 31 Creatinine 0.71 Estimat Glomerular Filtration 108 Rate Random Glucose 205 Calcium Level 8.5 Magnesium Level 2.0 Total Bilirubin 0.4 Aspartate Amino Transf 19 (AST/SGOT) Alanine Aminotransferase 14 (ALT/SGPT) Alkaline Phosphatase 67 Total Protein 6.6 Albumin 2.6 Date/Time Procedure Status Source Growth 09/15/16 08:30 Aerobic Blood Culture - Preliminary Resulted Blood Peripheral NO GROWTH IN 1 DAY 09/15/16 08:30 Anaerobic Blood Culture - Preliminary Resulted Blood Peripheral NO GROWTH IN 1 DAY Result Diagram: 09/16/16 0310 09/16/16 0510 Imaging Last Impressions Chest X-Ray 09/15/16 08 Signed Impressions: Service Date/Time: Thursday, September 15, 2016 08:44 - CONCLUSION: Bibasilar infiltrates with cardiomegaly. The radiographic pattern suggests pulmonary edema. Sammy Byrnes Jr., MD Assessment and Plan Assessment and Plan 75-year-old [facility] resident presents with one-day history of shortness of breath, fluid overload on chest x-ray. Concern for CHF exacerbation. Plan as below. will try to decrease meds that may be unnecessary Problem List: (1) CHF exacerbation Status: Acute Plan: Findings and presentation concerning for CHF exacerbation. Cardiology consult to help with medication management. Patient received 40 mg IV Lasix in the emergency room. 2-D echo Oxygen as needed. Lasix 40 mg IV twice a day Patient is already on beta kev, CLAUDIA inhibitor, as below. Pending echo results, patient may need spironolactone and/or digoxin Trend troponins and EKGs 3 PM and 9 PM. Bed elevated 30-45. Daily weights and I's/O's (2) Hemiplegia Status: Acute Plan: Out of bed to chair 3 times a day. Physical therapy consult (3) Rash Status: Acute Plan: Unclear etiology at this time. Patient had a dermatology consult for tomorrow. He will not be able to make that. He has been getting hydrocortisone lotion at the [facility] can continue possible allergy or contact dermatitis or other etiology. does not appear vasculitic. very pruritic per pt. (4) Stage 1 skin ulcer of sacral region Status: Acute Plan: Wound care nursing. Offload sacrum and heel Out of bed to chair 3 times a day PT consult (5) FEN/PPX Status: Acute Plan: Fluids: Hep-Lock IV as patient is fluid overloaded. can adjust tube feeds and water flushes to control his fluid intake Electrolytes: Monitor and replace when necessary Nutrition: Dietitian consult. Gastrostomy tube per dietitian. Normally patient gets Isosource 1.5 at 85 mL per hour 16 hours (on it 2 AMoff at 6 AM) Prophylaxis: Lovenox, SCD Chronic medical problems: Muscle spasm: Continue baclofen 10 mg History of stroke: Continue Plavix 75 mg daily Diabetes: Sliding scale insulin while inpatient. Adjust as needed. Hold home metformin High blood pressure: Continue hydrochlorothiazide 12.5 mg twice a day. Lisinopril 2.5 mg daily. Lopressor 25 mg twice a day. BPH: Continue Flomax Depression: Continue mirtazapine 15 mg Esophageal reflux: Continue Reglan 5 mg Physician Certification 2 Midnight Certification Type: Admission for Inpatient Services Order for Inpatient Services The services are ordered in accordance with Medicare regulations or non- Medicare payer requirements, as applicable. In the case of services not specified as inpatient-only, they are appropriately provided as inpatient services in accordance with the 2-midnight benchmark. Estimated LOS (days): 3 3 days is the estimated time the patient will need to remain in the hospital, assuming treatment plan goals are met and no additional complications. Post-Hospital Plan: SNF Problem Qualifiers (1) CHF exacerbation: Qualified Code: I50.9 - Acute on chronic congestive heart failure, unspecified congestive heart failure type (2) Hemiplegia: Qualified Code: I69.151 - Hemiplegia of right dominant side due to nontraumatic intraparenchymal hemorrhage of brain, unspecified hemiplegia type Susana Mckinnon MD September 16, 2016 11:18
--- NOTE | 2016-09-16 11:19 | EKG ---
Date Performed: 09/15/2016 Time Performed: 08:46:03 PTAGE: 75 years EKG: Sinus rhythm MARKED LEFT AXIS DEVIATION POSSIBLE ANTERIOR MYOCARDIAL INFARCTION ABNORMAL ECG PREVIOUS TRACING : 03/23/2006 11.09 DOCTOR: William Leblanc Interpretating Date/Time 09/16/2016 11:16:26
--- NOTE | 2016-09-16 14:43 | PD.CARD.PN ---
Subjective Subjective Remarks Pt reports breathing better Objective Medications Current Medications Medications (Trade) Dose Ordered Sig/Vincent Route Start Time Stop Time Status Last Admin (NS Flush) 2 ml BID IV FLUSH 09/15/16 21:00 09/16/16 09:02 (NS Flush) 2 ml UNSCH PRN IV FLUSH 09/15/16 14:00 (Lasix Inj) 40 mg BID@09,18 IVP 09/15/16 18:00 09/16/16 09:02 (Lovenox Inj) 40 mg Q24H SQ 09/15/16 15:00 09/15/16 16:34 (Lioresal) 10 mg Q8H PRN PO 09/15/16 14:30 (Plavix) 75 mg DAILY PO 09/16/16 09:00 09/16/16 09:02 (Ees 200 Mg/5 ml Liq) 200 mg Q6H PO 09/15/16 16:00 09/16/16 09:01 (Hydrocortisone 1% Cream) 1 applic BID TOPICAL 09/15/16 21:00 09/16/16 09:03 (Atarax) 25 mg QID PO 09/15/16 18:00 09/16/16 09:01 (Remeron) 15 mg HS PO 09/15/16 21:00 09/15/16 21:00 (Nu-Iron) 150 mg DAILY PO 09/16/16 09:00 09/16/16 09:01 (KCl) 20 meq BID PO 09/15/16 21:00 09/16/16 09:02 (Flomax) 0.4 mg HS PO 09/15/16 21:00 09/15/16 21:01 (Nizoral 2% Shampoo) 1 applic 2XWEEK TOPICAL 09/16/16 09:00 (Prinivil) 2.5 mg DAILY PO 09/16/16 09:00 09/16/16 09:02 (Reglan) 5 mg QID PO 09/15/16 18:00 09/16/16 09:02 (D50w (Vial) Inj) 50 ml UNSCH PRN IV 09/15/16 14:45 (Glucagon Inj) 1 mg UNSCH PRN OTHER 09/15/16 14:45 Patient Own Medication PT OWN MED: CLOBETA... BID TOPICAL 09/15/16 21:00 Hold (Lopressor) 50 mg DAILY PO 09/16/16 09:00 09/16/16 09:02 Vital Signs / I&O Vital Signs Date Time Temp Pulse Resp B/P Pulse Ox O2 Delivery O2 Flow Rate FiO2 09/16/16 13:00 93 Nasal Cannula 3.00 09/16/16 12:33 98.7 81 19 118/55 96 09/16/16 08:12 98.5 90 18 158/74 94 09/16/16 04:00 98.2 98 20 104/50 92 09/16/16 04:00 Nasal Cannula 3.00 09/16/16 00:00 Nasal Cannula 3.00 09/16/16 00:00 98.5 82 18 114/57 95 09/15/16 20:00 98.3 83 18 114/65 96 09/15/16 20:00 80 09/15/16 20:00 Nasal Cannula 3.00 09/15/16 16:52 78 09/15/16 16:00 97.5 84 20 125/72 97 09/15/16 15:50 Nasal Cannula 3.00 I/O 09/15/16 09/15/16 09/15/16 09/16/16 09/16/16 09/16/16 07:00 15:00 23:00 07:00 15:00 23:00 Intake Total 0 ml 804 ml Output Total 0 ml Balance 0 ml 804 ml Intake Oral 0 ml 0 ml Tube Feeding 804 ml Output Urine Total 0 ml # Voids 1 # Bowel Movements 0 0 Physical Exam GENERAL: Well developed, well nourished. No acute distress. HEENT: Jugular venous pressure is normal. CHEST: Lungs clear to auscultation bilaterally. Unlabored respiratory effort. CARDIAC: Regular rate and rhythm without S3, S4, or murmur. ABDOMEN: Soft, nontender, no hepatosplenomegaly. Bowel sounds present. EXTREMITIES: No clubbing, cyanosis, or edema. Laboratory Laboratory Tests Test 09/15/16 09/16/16 09/16/16 09/16/16 18:25 00:45 03:10 05:10 Troponin I 0.10 NG/ML 0.11 NG/ML White Blood Count 6.4 TH/MM3 Red Blood Count 3.01 MIL/MM3 Hemoglobin 9.9 GM/DL Hematocrit 29.2 % Mean Corpuscular Volume 97.1 FL Mean Corpuscular Hemoglobin 33.0 PG Mean Corpuscular Hemoglobin 34.0 % Concent Red Cell Distribution Width 13.8 % Platelet Count 181 TH/MM3 Mean Platelet Volume 11.1 FL Neutrophils (%) (Auto) 61.3 % Lymphocytes (%) (Auto) 14.3 % Monocytes (%) (Auto) 13.3 % Eosinophils (%) (Auto) 10.4 % Basophils (%) (Auto) 0.7 % Neutrophils # (Auto) 3.9 TH/MM3 Lymphocytes # (Auto) 0.9 TH/MM3 Monocytes # (Auto) 0.8 TH/MM3 Eosinophils # (Auto) 0.7 TH/MM3 Basophils # (Auto) 0.0 TH/MM3 CBC Comment DIFF FINAL Differential Comment Sodium Level 142 MEQ/L Potassium Level 3.5 MEQ/L Chloride Level 102 MEQ/L Carbon Dioxide Level 32.5 MEQ/L Anion Gap 8 MEQ/L Blood Urea Nitrogen 31 MG/DL Creatinine 0.71 MG/DL Estimat Glomerular Filtration 108 ML/MIN Rate Random Glucose 205 MG/DL Calcium Level 8.5 MG/DL Magnesium Level 2.0 MG/DL Total Bilirubin 0.4 MG/DL Aspartate Amino Transf 19 U/L (AST/SGOT) Alanine Aminotransferase 14 U/L (ALT/SGPT) Alkaline Phosphatase 67 U/L Total Protein 6.6 GM/DL Albumin 2.6 GM/DL Assessment and Plan Assessment and Plan Acute systolic CHF- EF 30-35% by ECHO -pt doing better with medical management -no a revascularization candidate with comorbid conditions -lópez garcia to tube/PO in am Cardiomyopathy-EF 35%; duration unknown - I would not pursue an ischemia work up as he would be high risk with his anemia Anemia- per primary team s/p CVA- dysphagia and hemiplegia Tala Bernard MD September 16, 2016 14:43
[2016-09-16] MEDS: ENOXAPARIN SODIUM 40 MG/0.4 ML SYRINGE SQ SCH (16:12)
[2016-09-16] MEDS: TAMSULOSIN HCL 0.4 MG CAP PO SCH (21:43)
[2016-09-16] MEDS: MIRTAZAPINE 15 MG TAB PO SCH (21:43)
[2016-09-17] VITALS (7 sets, daily range): BP systolic 103–124; BP diastolic 55–71; PULSE 70–86; RESP 16–18; TEMP 97.8–99.1; O2SAT 91–96
[2016-09-17] MEDS: ERYTHROMYCIN ETHYLSUCCINATE 200 MG/5 ML SUSP 100 ML BOTTLE PO SCH ×4 (05:54→20:45)
[2016-09-17] MEDS: INSULIN ASPART SUPPLEMENTAL SCALE SQ SCH ×4 (05:54→21:08)
--- NOTE | 2016-09-17 07:51 | PD.CARD.PN ---
Subjective Subjective Remarks Pt without complaints Objective Medications Current Medications Medications (Trade) Dose Ordered Sig/Vincent Route Start Time Stop Time Status Last Admin (NS Flush) 2 ml BID IV FLUSH 09/15/16 21:00 09/16/16 21:00 (NS Flush) 2 ml UNSCH PRN IV FLUSH 09/15/16 14:00 (Lasix Inj) 40 mg BID@09,18 IVP 09/15/16 18:00 09/16/16 18:09 (Lovenox Inj) 40 mg Q24H SQ 09/15/16 15:00 09/16/16 16:12 (Lioresal) 10 mg Q8H PRN PO 09/15/16 14:30 (Plavix) 75 mg DAILY PO 09/16/16 09:00 09/16/16 09:02 (Ees 200 Mg/5 ml Liq) 200 mg Q6H PO 09/15/16 16:00 09/17/16 05:54 (Hydrocortisone 1% Cream) 1 applic BID TOPICAL 09/15/16 21:00 09/16/16 21:46 (Atarax) 25 mg QID PO 09/15/16 18:00 09/16/16 21:43 (Remeron) 15 mg HS PO 09/15/16 21:00 09/16/16 21:43 (Nu-Iron) 150 mg DAILY PO 09/16/16 09:00 09/16/16 09:01 (KCl) 20 meq BID PO 09/15/16 21:00 09/16/16 21:00 (Flomax) 0.4 mg HS PO 09/15/16 21:00 09/16/16 21:43 (Nizoral 2% Shampoo) 1 applic 2XWEEK TOPICAL 09/16/16 09:00 (Prinivil) 2.5 mg DAILY PO 09/16/16 09:00 09/16/16 09:02 (Reglan) 5 mg QID PO 09/15/16 18:00 Hold 09/16/16 09:02 (D50w (Vial) Inj) 50 ml UNSCH PRN IV 09/15/16 14:45 (Glucagon Inj) 1 mg UNSCH PRN OTHER 09/15/16 14:45 Patient Own Medication PT OWN MED: CLOBETA... BID TOPICAL 09/15/16 21:00 Hold (Lopressor) 50 mg DAILY PO 09/16/16 09:00 09/16/16 09:02 Vital Signs / I&O Vital Signs Date Time Temp Pulse Resp B/P Pulse Ox O2 Delivery O2 Flow Rate FiO2 09/17/16 04:35 98.2 86 16 123/65 91 09/17/16 04:00 Nasal Cannula 3.00 09/17/16 00:00 Nasal Cannula 3.00 09/16/16 23:18 98.2 88 16 113/58 95 09/16/16 20:00 81 09/16/16 20:00 Nasal Cannula 3.00 09/16/16 19:50 98.2 84 16 120/59 95 09/16/16 18:11 97 Nasal Cannula 3.00 09/16/16 16:22 98.2 83 18 133/75 97 09/16/16 13:00 93 Nasal Cannula 3.00 09/16/16 12:33 98.7 81 19 118/55 96 09/16/16 08:12 98.5 90 18 158/74 94 09/16/16 08:00 Nasal Cannula 3.00 09/16/16 08:00 72 I/O 09/16/16 09/16/16 09/16/16 09/17/16 09/17/16 09/17/16 07:00 15:00 23:00 07:00 15:00 23:00 Intake Total 804 ml 717 ml 0 ml 1000 ml Output Total 0 ml 1300 ml 450 ml 550 ml Balance 804 ml -583 ml -450 ml 450 ml Intake Oral 0 ml 0 ml 0 ml Tube Feeding 804 ml 717 ml 1000 ml Output Urine Total 0 ml 1300 ml 450 ml 550 ml # Bowel Movements 0 1 0 1 Physical Exam GENERAL: Well developed, well nourished. No acute distress. HEENT: Jugular venous pressure is normal. CHEST: Lungs clear to auscultation bilaterally. Unlabored respiratory effort. CARDIAC: Regular rate and rhythm without S3, S4, or murmur. ABDOMEN: Soft, nontender, no hepatosplenomegaly. Bowel sounds present. EXTREMITIES: No clubbing, cyanosis, or edema. Assessment and Plan Assessment and Plan Acute systolic CHF- EF 30-35% by ECHO -pt doing better with medical management -not a revascularization candidate with comorbid conditions -change lasix to tube/PO Cardiomyopathy-EF 35%; duration unknown - I would not pursue an ischemia work up as he would be high risk with his anemia Anemia- per primary team s/p CVA- dysphagia and hemiplegia Ok for d/c in am if stable on PO Tala Gusman MD September 17, 2016 07:51
[2016-09-17 09:22] LABS: BASOPHIL % 0.4 % (0.0-2.0); EOSINOPHIL # 0.8 TH/MM3 (0-0.4); EOSINOPHIL % 10.6 % (0.0-4.0); HEMATOCRIT 31.4 % (39.0-51.0); HEMO FLAGS DIFF FINAL; LYMPH % 10.7 % (9.0-44.0); LYMPHOCYTE # 0.8 TH/MM3 (1.0-4.8); MEAN CORPUSCULAR HEMOGLOBIN 32.8 PG (27.0-34.0); MEAN CORPUSCULAR HGB CONC 33.8 % (32.0-36.0); MONO % 10.6 % (0.0-8.0); NEUT % 67.7 % (16.0-70.0); PLATELET COUNT 194 TH/MM3 (150-450); RED BLOOD COUNT 3.24 MIL/MM3 (4.50-5.90); RED CELL DISTRIBUTION WIDTH 13.8 % (11.6-17.2); WHITE BLOOD COUNT 7.4 TH/MM3 (4.0-11.0)
[2016-09-17] MEDS: METOPROLOL TARTRATE 50 MG TAB PO SCH (09:36)
[2016-09-17] MEDS: FUROSEMIDE 40 MG/5 ML UNIT DOSE CUP PEG SCH ×2 (09:36→17:44)
[2016-09-17] MEDS: hydrOXYzine HCL 25 MG TAB PO SCH ×4 (09:36→20:44)
[2016-09-17] MEDS: POTASSIUM CHLORIDE 20 MEQ CONTROLLED RELEASE TAB PO SCH ×2 (09:36→20:43)
[2016-09-17] MEDS: LISINOPRIL 5 MG TAB PO SCH (09:36)
[2016-09-17] MEDS: POLYSACCHARIDE IRON COMPLEX 150 MG CAP PO SCH (09:36)
[2016-09-17] MEDS: CLOPIDOGREL 75 MG TAB PO SCH (09:36)
[2016-09-17] MEDS: SODIUM CHLORIDE 0.9% FLUSH 10 ML FLUSH IV FLUSH SCH ×2 (09:37→20:45)
[2016-09-17] MEDS: HYDROCORTISONE 1% CREAM 30 GM TOPICAL SCH ×2 (09:37→21:00)
[2016-09-17 09:55] LABS: BICARBONATE 34.2 MEQ/L (21.0-32.0); POTASSIUM 3.8 MEQ/L (3.5-5.1)
--- NOTE | 2016-09-17 10:43 | HHI.FPPN ---
Subjective Remarks The patient states he is doing better this morning. He feels his breathing is much improved. He feels as though he will be ready to go back to his nursing facility tomorrow. Denies fever, chills, nausea, vomiting, shortness of breath. (Young Bergeron MD R2) Objective Vitals Vital Signs Date Time Temp Pulse Resp B/P Pulse Ox O2 Delivery O2 Flow Rate FiO2 09/17/16 08:46 91 Nasal Cannula 3.00 09/17/16 08:00 86 09/17/16 08:00 98.4 86 18 123/65 95 09/17/16 08:00 Nasal Cannula 3.00 09/17/16 04:35 98.2 86 16 123/65 91 09/17/16 04:00 Nasal Cannula 3.00 09/17/16 00:00 Nasal Cannula 3.00 09/16/16 23:18 98.2 88 16 113/58 95 09/16/16 20:00 81 09/16/16 20:00 Nasal Cannula 3.00 09/16/16 19:50 98.2 84 16 120/59 95 09/16/16 18:11 97 Nasal Cannula 3.00 09/16/16 16:22 98.2 83 18 133/75 97 09/16/16 13:00 93 Nasal Cannula 3.00 09/16/16 12:33 98.7 81 19 118/55 96 I/O 09/16/16 09/16/16 09/16/16 09/17/16 09/17/16 09/17/16 07:00 15:00 23:00 07:00 15:00 23:00 Intake Total 804 ml 717 ml 0 ml 1000 ml Output Total 0 ml 1300 ml 450 ml 550 ml Balance 804 ml -583 ml -450 ml 450 ml Intake Oral 0 ml 0 ml 0 ml Tube Feeding 804 ml 717 ml 1000 ml Output Urine Total 0 ml 1300 ml 450 ml 550 ml # Bowel Movements 0 1 0 1 (Young Bergeron MD R2) Result Diagram: 09/17/1690809/17/16908 Objective Remarks GENERAL: Elderly male with obvious contracture side lying comfortably, no acute distress SKIN: Stage I decubitus low back. Diffuse pruritic rash upper chest and upper arms as well as legs and back. macular papular with some areas of excoriation. HEAD: Atraumatic. Normocephalic. EYES: Pupils equal round and reactive. Extraocular motions intact. No scleral icterus. No injection or drainage. NECK: Trachea midline. No JVD or lymphadenopathy. Supple, nontender, no meningeal signs. CARDIOVASCULAR: Regular rate and rhythm. No murmurs rubs or gallops. RESPIRATORY: Improved aeration bilaterally. GASTROINTESTINAL: Abdomen soft, non-tender, nondistended. No hepato-splenomegaly , or palpable masses. No guarding. Gastrostomy tube in place without surrounding erythema. MUSCULOSKELETAL: Contracture of right arm. Full use of left upper extremity. Left BKA. Right lower extremity in heel boot. Amputation of second toe NEUROLOGICAL: Awake and alert. Appropriate insight and judgment. Follows commands. Speech understandable but slow. Mild dysarthria. somewhat difficult to understand his spontaneous speech (Young Bergeron MD R2) A/P Assessment and Plan 75-year-old snf resident presents with one-day history of shortness of breath, fluid overload on chest x-ray. Concern for CHF exacerbation. Plan as below. will try to decrease meds that may be unnecessary Discharge Planning Likely tomorrow to his custodial facility, [id number] signed. Lasix script printed (may need to change pending clinical exam on ). HCTZ discontinued. PT recommends PT at his facility (Young Bergeron MD R2) Attending Attestation Patient seen and examined. Case reviewed and discussed with the resident team. Agree with plan of care as discussed with me and documented in the resident note. (Susana Mckinnon MD) Problem List: (1) CHF exacerbation Status: Acute Plan: Findings and presentation concerning for CHF exacerbation. Cardiology consult to help with medication management. Patient will be cleared for discharge on 09/18 if tolerating Lasix dosing via gastrostomy tube 2-D echo: Ejection fraction 30-35% Oxygen as needed. Lasix 40 mg via gastrostomy tube twice a day. Patient is already on beta kev, CLAUDIA inhibitor, as below. Bed elevated 30-45. Daily weights and I's/O's (2) Hemiplegia Status: Acute Plan: Out of bed to chair 3 times a day. Physical therapy consult (3) Rash Status: Acute Plan: Unclear etiology at this time. Improving per patient He has been getting hydrocortisone lotion at the snf can continue possible allergy or contact dermatitis or other etiology. does not appear vasculitic. very pruritic per pt. He will follow with a supervisor asphalt paving at his custodial facility as previously ordered. (4) Stage 1 skin ulcer of sacral region Status: Acute Plan: Wound care nursing. Offload sacrum and heel Out of bed to chair 3 times a day PT consult (5) FEN/PPX Status: Acute Plan: Fluids: Hep-Lock IV as patient is fluid overloaded. can adjust tube feeds and water flushes to control his fluid intake Electrolytes: Monitor and replace when necessary Nutrition: Dietitian consult. Gastrostomy tube per dietitian. Normally patient gets Isosource 1.5 at 85 mL per hour 16 hours (on it 2 AMoff at 6 AM) Prophylaxis: Lovenox, SCD Chronic medical problems: Muscle spasm: Continue baclofen 10 mg History of stroke: Continue Plavix 75 mg daily Diabetes: Sliding scale insulin while inpatient. Adjust as needed. Hold home metformin High blood pressure: Continue . Lisinopril 2.5 mg daily. Lopressor 25 mg twice a day. 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
--- NOTE | 2016-09-17 11:50 | HHI.DCPOC ---
Discharge Care Plan Diagnosis: (1) CHF exacerbation Goals to Promote Your Health * To prevent worsening of your condition and complications * To maintain your health at the optimal level Directions to Meet Your Goals Take your medications as prescribed Follow your dietary instruction Follow activity as directed Keep your appointments as scheduled Take your immunizations and boosters as scheduled If your symptoms worsen call your PCP, if no PCP go to Urgent Care Center or Emergency Room Smoking is Dangerous to Your Health. Avoid second hand smoke Call the 24-hour hour crisis hotline for domestic abuse at Young Bergeron MD R2 September 17, 2016 11:49
[2016-09-17] MEDS ORDERED: FURO8SOL PEG (11:52)
[2016-09-17] MEDS: ENOXAPARIN SODIUM 40 MG/0.4 ML SYRINGE SQ SCH (15:00)
[2016-09-17] MEDS: TAMSULOSIN HCL 0.4 MG CAP PO SCH (20:43)
[2016-09-17] MEDS: MIRTAZAPINE 15 MG TAB PO SCH (20:44)
[2016-09-18] VITALS (7 sets, daily range): BP systolic 98–126; BP diastolic 54–76; PULSE 71–90; RESP 16–18; TEMP 98–98.8; O2SAT 94–97
[2016-09-18] MEDS: ERYTHROMYCIN ETHYLSUCCINATE 200 MG/5 ML SUSP 100 ML BOTTLE PO SCH ×2 (04:00→07:56)
[2016-09-18] MEDS: INSULIN ASPART SUPPLEMENTAL SCALE SQ SCH ×2 (06:08→12:36)
--- NOTE | 2016-09-18 07:39 | PD.CARD.PN ---
Subjective Subjective Remarks Pt without complaint Objective Medications Current Medications Medications (Trade) Dose Ordered Sig/Vincent Route Start Time Stop Time Status Last Admin (NS Flush) 2 ml BID IV FLUSH 09/15/16 21:00 09/17/16 20:45 (NS Flush) 2 ml UNSCH PRN IV FLUSH 09/15/16 14:00 (Lovenox Inj) 40 mg Q24H SQ 09/15/16 15:00 09/17/16 15:00 (Lioresal) 10 mg Q8H PRN PO 09/15/16 14:30 (Plavix) 75 mg DAILY PO 09/16/16 09:00 09/17/16 09:36 (Ees 200 Mg/5 ml Liq) 200 mg Q6H PO 09/15/16 16:00 09/18/16 04:00 (Hydrocortisone 1% Cream) 1 applic BID TOPICAL 09/15/16 21:00 09/17/16 21:00 (Atarax) 25 mg QID PO 09/15/16 18:00 09/17/16 20:44 (Remeron) 15 mg HS PO 09/15/16 21:00 09/17/16 20:44 (Nu-Iron) 150 mg DAILY PO 09/16/16 09:00 09/17/16 09:36 (KCl) 20 meq BID PO 09/15/16 21:00 09/17/16 20:43 (Flomax) 0.4 mg HS PO 09/15/16 21:00 09/17/16 20:43 (Nizoral 2% Shampoo) 1 applic 2XWEEK TOPICAL 09/16/16 09:00 (Prinivil) 2.5 mg DAILY PO 09/16/16 09:00 09/17/16 09:36 (Reglan) 5 mg QID PO 09/15/16 18:00 Hold 09/16/16 09:02 (D50w (Vial) Inj) 50 ml UNSCH PRN IV 09/15/16 14:45 (Glucagon Inj) 1 mg UNSCH PRN OTHER 09/15/16 14:45 Patient Own Medication PT OWN MED: CLOBETA... BID TOPICAL 09/15/16 21:00 Hold (Lopressor) 50 mg DAILY PO 09/16/16 09:00 09/17/16 09:36 (Lasix Liq) 40 mg BID@09,18 PEG 09/17/16 09:00 09/17/16 17:44 Vital Signs / I&O Vital Signs Date Time Temp Pulse Resp B/P Pulse Ox O2 Delivery O2 Flow Rate FiO2 09/18/16 03:55 98.0 86 16 126/76 95 09/18/16 01:33 81 09/17/16 23:23 97.8 83 16 103/55 96 09/17/16 20:45 Nasal Cannula 3.00 09/17/16 19:50 98.0 82 16 121/71 95 09/17/16 16:00 98.3 83 18 124/67 96 09/17/16 12:00 99.1 70 16 104/59 95 09/17/16 08:46 91 Nasal Cannula 3.00 09/17/16 08:00 86 09/17/16 08:00 98.4 86 18 123/65 95 09/17/16 08:00 Nasal Cannula 3.00 I/O 09/17/16 09/17/16 09/17/16 09/18/16 09/18/16 09/18/16 07:00 15:00 23:00 07:00 15:00 23:00 Intake Total 1000 ml 898 ml 0 ml 717 ml Output Total 550 ml Balance 450 ml 898 ml 0 ml 717 ml Intake Oral 0 ml 0 ml 0 ml 0 ml IV Total 2 ml Tube Feeding 1000 ml 898 ml 715 ml Output Urine Total 550 ml # Voids 2 3 4 # Bowel Movements 1 0 0 1 Physical Exam GENERAL: Well developed, well nourished. No acute distress. HEENT: Jugular venous pressure is normal. CHEST: Lungs clear to auscultation bilaterally. Unlabored respiratory effort. CARDIAC: Regular rate and rhythm without S3, S4, or murmur. ABDOMEN: Soft, nontender, no hepatosplenomegaly. Bowel sounds present. EXTREMITIES: No clubbing, cyanosis, or edema. Laboratory Laboratory Tests Test 09/17/16 09:09 White Blood Count 7.4 TH/MM3 Red Blood Count 3.24 MIL/MM3 Hemoglobin 10.6 GM/DL Hematocrit 31.4 % Mean Corpuscular Volume 97.0 FL Mean Corpuscular Hemoglobin 32.8 PG Mean Corpuscular Hemoglobin 33.8 % Concent Red Cell Distribution Width 13.8 % Platelet Count 194 TH/MM3 Mean Platelet Volume 10.4 FL Neutrophils (%) (Auto) 67.7 % Lymphocytes (%) (Auto) 10.7 % Monocytes (%) (Auto) 10.6 % Eosinophils (%) (Auto) 10.6 % Basophils (%) (Auto) 0.4 % Neutrophils # (Auto) 5.0 TH/MM3 Lymphocytes # (Auto) 0.8 TH/MM3 Monocytes # (Auto) 0.8 TH/MM3 Eosinophils # (Auto) 0.8 TH/MM3 Basophils # (Auto) 0.0 TH/MM3 CBC Comment DIFF FINAL Differential Comment Sodium Level 143 MEQ/L Potassium Level 3.8 MEQ/L Chloride Level 103 MEQ/L Carbon Dioxide Level 34.2 MEQ/L Anion Gap 6 MEQ/L Blood Urea Nitrogen 36 MG/DL Creatinine 0.72 MG/DL Estimat Glomerular Filtration 106 ML/MIN Rate Random Glucose 203 MG/DL Calcium Level 8.9 MG/DL B-Type Natriuretic Peptide 1432 PG/ML Assessment and Plan Assessment and Plan Acute systolic CHF- EF 30-35% by ECHO -pt doing better with medical management -not a revascularization candidate with comorbid conditions -doing well on present meds Cardiomyopathy-EF 35%; duration unknown - I would not pursue an ischemia work up as he would be high risk with his anemia Anemia- per primary team s/p CVA- dysphagia and hemiplegia Ok for d/c Tala Bernard MD September 18, 2016 07:39
[2016-09-18] MEDS: POLYSACCHARIDE IRON COMPLEX 150 MG CAP PO SCH (07:55)
[2016-09-18] MEDS: POTASSIUM CHLORIDE 20 MEQ CONTROLLED RELEASE TAB PO SCH (07:55)
[2016-09-18] MEDS: LISINOPRIL 5 MG TAB PO SCH (07:55)
[2016-09-18] MEDS: METOPROLOL TARTRATE 50 MG TAB PO SCH (07:55)
[2016-09-18] MEDS: CLOPIDOGREL 75 MG TAB PO SCH (07:55)
[2016-09-18] MEDS: FUROSEMIDE 40 MG/5 ML UNIT DOSE CUP PEG SCH (07:55)
[2016-09-18] MEDS: hydrOXYzine HCL 25 MG TAB PO SCH ×2 (07:55→12:30)
[2016-09-18] MEDS: HYDROCORTISONE 1% CREAM 30 GM TOPICAL SCH (07:56)
[2016-09-18] MEDS: SODIUM CHLORIDE 0.9% FLUSH 10 ML FLUSH IV FLUSH SCH (07:56)
--- NOTE | 2016-09-18 09:00 | HHI.FPPN ---
Subjective Remarks No acute events overnight. Patient is eager to get back to his nursing facility. Patient remains afebrile. He does not have any specific complaints or concerns this AM. Denies fevers, CP, SOB, lower extremity swelling, pain. ( Jesus Manuel Galicia MD R1) Objective Vitals Vital Signs Date Time Temp Pulse Resp B/P Pulse Ox O2 Delivery O2 Flow Rate FiO2 09/18/16 03:55 98.0 86 16 126/76 95 09/18/16 01:33 81 09/17/16 23:23 97.8 83 16 103/55 96 09/17/16 20:45 Nasal Cannula 3.00 09/17/16 19:50 98.0 82 16 121/71 95 09/17/16 16:00 98.3 83 18 124/67 96 09/17/16 12:00 99.1 70 16 104/59 95 I/O 09/17/16 09/17/16 09/17/16 09/18/16 09/18/16 09/18/16 07:00 15:00 23:00 07:00 15:00 23:00 Intake Total 1000 ml 898 ml 0 ml 717 ml Output Total 550 ml Balance 450 ml 898 ml 0 ml 717 ml Intake Oral 0 ml 0 ml 0 ml 0 ml IV Total 2 ml Tube Feeding 1000 ml 898 ml 715 ml Output Urine Total 550 ml # Voids 2 3 4 # Bowel Movements 1 0 0 1 (Jesus Manuel Galicia MD R1) Result Diagram: 09/17/16 0909 09/17/16 0909 Objective Remarks GENERAL: Elderly male with obvious contracture side lying comfortably, no acute distress SKIN: Stage I decubitus low back. Diffuse pruritic rash upper chest and upper arms as well as legs and back. macular papular with some areas of excoriation. HEAD: Atraumatic. Normocephalic. EYES: Pupils equal round and reactive. Extraocular motions intact. No scleral icterus. No injection or drainage. NECK: Trachea midline. No JVD or lymphadenopathy. Supple, nontender, no meningeal signs. CARDIOVASCULAR: Regular rate and rhythm. No murmurs rubs or gallops. RESPIRATORY: Improved aeration bilaterally. GASTROINTESTINAL: Abdomen soft, non-tender, nondistended. No hepato-splenomegaly , or palpable masses. No guarding. Gastrostomy tube in place without surrounding erythema. MUSCULOSKELETAL: Contracture of right arm. Full use of left upper extremity. Left BKA. Right lower extremity in heel boot. Amputation of second toe NEUROLOGICAL: Awake and alert. Appropriate insight and judgment. Follows commands. Speech understandable but slow. Mild dysarthria. 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 Concern for CHF exacerbation. Plan as below. Discharge Planning Stable for discharge today to his custodial facility, [facility]. PT recommends PT at his facility (Jesus Manuel Galicia MD R1) Attending Attestation Patient seen and examined. Case reviewed and discussed with the resident team. Agree with plan of care as discussed with me and documented in the resident note. (Susana Mckinnon MD) Problem List: (1) CHF exacerbation Status: Acute Plan: Findings and presentation concerning for CHF exacerbation. Cardiology consult to help with medication management. 2-D echo: Ejection fraction 30-35% Oxygen as needed. Lasix 40 mg via gastrostomy tube twice a day. Patient is already on beta kev, CLAUDIA inhibitor, as below. Bed elevated 30-45. Daily weights and I's/O's (2) Hemiplegia Status: Acute Plan: Out of bed to chair 3 times a day. Physical therapy consult (3) Rash Status: Acute Plan: Unclear etiology at this time. Improving per patient He has been [facility]ion [facility] can continue possible allergy or contact dermatitis or other etiology. does not appear vasculitic. very pruritic per pt. He will follow with a compounding pharmacy technician at his custodial facility as previously ordered. (4) Stage 1 skin ulcer of sacral region Status: Acute Plan: Wound care nursing. Offload sacrum and heel Out of bed to chair 3 times a day PT consult (5) FEN/PPX Status: Acute Plan: Fluids: Hep-Lock IV as patient is fluid overloaded. can adjust tube feeds and water flushes to control his fluid intake Electrolytes: Monitor and replace when necessary Nutrition: Dietitian consult. Gastrostomy tube per dietitian. Normally patient gets Isosource 1.5 at 85 mL per hour 16 hours (on it 2 AMoff at 6 AM) Prophylaxis: Lovenox, SCD Chronic medical problems: Muscle spasm: Continue baclofen 10 mg History of stroke: Continue Plavix 75 mg daily Diabetes: Sliding scale insulin while inpatient. Adjust as needed. Hold home metformin High blood pressure: Continue . Lisinopril 2.5 mg daily. Lopressor 25 mg twice a day. 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
[2016-09-18] MEDS: ENOXAPARIN SODIUM 40 MG/0.4 ML SYRINGE SQ SCH (14:40)
--- NOTE | 2016-09-18 15:17 | HHI.DS ---
Discharge Summary Admission Date September 15, 2016 at 10:26 Discharge Date: September 18, 2016 Admitting Diagnosis congestive heart failure, pulmonary edema, hypoxia, elevated troponi (1) CHF exacerbation Diagnosis: Principal Plan: Findings and presentation concerning for CHF exacerbation. Cardiology consult to help with medication management. 2-D echo: Ejection fraction 30-35% Oxygen as needed. Lasix 40 mg via gastrostomy tube twice a day. Patient is already on beta kev, CLAUDIA inhibitor, as below. Bed elevated 30-45. Daily weights and I's/O's (2) Hemiplegia Diagnosis: Secondary Plan: Out of bed to chair 3 times a day. Physical therapy consult (3) Rash Diagnosis: Secondary Plan: Unclear etiology at this time. Improving per patient He has [facility] can continue possible allergy or contact dermatitis or other etiology. does not appear vasculitic. very pruritic per pt. He will follow with a statistical reporting analyst at his long-term facility as previously ordered. (4) Stage 1 skin ulcer of sacral region Diagnosis: Secondary Plan: Wound care nursing. Offload sacrum and heel Out of bed to chair 3 times a day PT consult (5) FEN/PPX Diagnosis: Secondary Plan: Fluids: Hep-Lock IV as patient is fluid overloaded. can adjust tube feeds and water flushes to control his fluid intake Electrolytes: Monitor and replace when necessary Nutrition: Dietitian consult. Gastrostomy tube per dietitian. Normally patient gets Isosource 1.5 at 85 mL per hour 16 hours (on it 2 AMoff at 6 AM) Prophylaxis: Lovenox, SCD Chronic medical problems: Muscle spasm: Continue baclofen 10 mg History of stroke: Continue Plavix 75 mg daily Diabetes: Sliding scale insulin while inpatient. Adjust as needed. Hold home metformin HTN: Continue Lisinopril 2.5 mg daily. Lopressor 25 mg twice a day. Hydrochlorothiazide has been discontinued prior to discharge BPH: Continue Flomax Depression: Continue mirtazapine 15 mg Esophageal reflux: Continue Reglan 5 mg Consultants Cardiology Procedures TTE showing estimated EF in the range of 30-35%; mild mitral and tricuspid regurgitation Brief History Mr López is a 75-year-old male penitentiary resident of [facility] who presented with a one to 2 day history of difficulty breathing. Patient is hemiplegic and normally gets around in a wheelchair. He states his symptoms started the day before admission while lying in bed in the morning. Normally he lays flat on his right side. In the morning, however, while lying in bed he states he had difficulty breathing. Throughout the day this continued to worsen and he was becoming more short of breath and diaphoretic. I spoke with the nurse at the facility who gives a similar story. It was determined to come to the emergency room. Of note, the patient has been having a rash for the last week or so involving his upper chest and extremities. A dermatology consult was placed and was said to be performed on 09/16. Patient stated he last had chest pain approximately 2 weeks ago. At that time it was 5 out of 10. Currently not having any chest pain. CBC/BMP: 09/17/16 0909 09/17/16 0909 Significant Findings Laboratory Tests Test 09/15/16 09/16/16 09/16/16 09/16/16 18:25 00:45 03:10 05:10 Troponin I 0.10 NG/ML 0.11 NG/ML (0.02-0.05) (0.02-0.05) Red Blood Count 3.01 MIL/MM3 (4.50-5.90) Hemoglobin 9.9 GM/DL (13.0-17.0) Hematocrit 29.2 % (39.0-51.0) Mean Platelet Volume 11.1 FL (7.0-11.0) Monocytes (%) (Auto) 13.3 % (0.0-8.0) Eosinophils (%) (Auto) 10.4 % (0.0-4.0) Lymphocytes # (Auto) 0.9 TH/MM3 (1.0-4.8) Eosinophils # (Auto) 0.7 TH/MM3 (0-0.4) Carbon Dioxide Level 32.5 MEQ/L (21.0-32.0) Blood Urea Nitrogen 31 MG/DL (7-18) Random Glucose 205 MG/DL (74-106) Albumin 2.6 GM/DL (3.4-5.0) Test 09/17/16 09:09 Red Blood Count 3.24 MIL/MM3 (4.50-5.90) Hemoglobin 10.6 GM/DL (13.0-17.0) Hematocrit 31.4 % (39.0-51.0) Monocytes (%) (Auto) 10.6 % (0.0-8.0) Eosinophils (%) (Auto) 10.6 % (0.0-4.0) Lymphocytes # (Auto) 0.8 TH/MM3 (1.0-4.8) Eosinophils # (Auto) 0.8 TH/MM3 (0-0.4) Carbon Dioxide Level 34.2 MEQ/L (21.0-32.0) Blood Urea Nitrogen 36 MG/DL (7-18) Random Glucose 203 MG/DL (74-106) B-Type Natriuretic Peptide 1432 PG/ML (0-100) PE at Discharge GENERAL: Elderly male with obvious contracture side lying comfortably, no acute distress SKIN: Stage I decubitus low back. Diffuse pruritic rash upper chest and upper arms as well as legs and back. macular papular with some areas of excoriation. HEAD: Atraumatic. Normocephalic. EYES: Pupils equal round and reactive. Extraocular motions intact. No scleral icterus. No injection or drainage. NECK: Trachea midline. No JVD or lymphadenopathy. Supple, nontender, no meningeal signs. CARDIOVASCULAR: Regular rate and rhythm. No murmurs rubs or gallops. RESPIRATORY: Improved aeration bilaterally. GASTROINTESTINAL: Abdomen soft, non-tender, nondistended. No hepato-splenomegaly , or palpable masses. No guarding. Gastrostomy tube in place without surrounding erythema. MUSCULOSKELETAL: Contracture of right arm. Full use of left upper extremity. Left BKA. Right lower extremity in heel boot. Amputation of second toe NEUROLOGICAL: Awake and alert. Appropriate insight and judgment. Follows commands. Speech understandable but slow. Mild dysarthria. somewhat difficult to understand his spontaneous speech Hospital Course Patient was found to have a BNP of 1064. Troponins were trended x3 which were not concerning for ischemia. Per cardiology, patient would also not be a revascularization candidate given his higher risk with his anemia. Patient was started on Lasix 40 mg IV daily on admission. Patient did well the next day and was transitioned to Lasix 40 mg po BID via his PEG tube per cardiology. Patient did not have any complications during hospitalization. Pt Condition on Discharge: Stable Discharge Disposition: Discharge to SNF Discharge Instructions DIET: Follow Instructions for: Heart Healthy Diet Activities you can perform: See Additionl Instruction Other Activity Instructions: Per PT recs. Should require assistance when OOB Follow up Referrals: PCP Follow-up - 1 Week SNF[facility] with [facility] New Medications: Furosemide Liq (Furosemide Liq) 8 Mg/Ml Soln 40 MG PEG BID@,18 #300 ML Continued Medications: Ascorbic Acid (Ascorbic Acid) 500 Mg Tab 500 MG PO TAB Baclofen (Baclofen) 10 Mg Tab 10 MG PO Q8HR PRN MUSCLE SPASM Ref 0 TAB Clobetasol Scalp Topical (Cormax Scalp Topical) 0.05% Soln 1 APPLIC TOPICAL BID Rash/Inflammation #50 Ref 0 ML Clopidogrel (Clopidogrel) 75 Mg Tab 75 MG PO DAILY Blood Clot Prevention #30 Ref 0 TAB Erythromycin Ethylsuccinate Liq (Erythromycin Ethylsuccinate Liq) 200 Mg/Ml Susp 200 MG PO Q6H Infection Ref 0 ML Glucagon (Rdna) Inj Kit (Glucagon Emergency Inj Kit) 1 Mg Kit 1 MG IM ONCE PRN Blood Sugar Management #1 Ref 0 KIT Guaifenesin ER 12 HR (Guaifenesin ER 12 HR) 600 Mg Nancy 600 MG PO BID Chest Congestion/Cough Ref 0 TAB Hydrocortisone Topical (Hydrocortisone Topical) 1% Cream 1 APPLIC TOPICAL BID Rash/Inflammation Ref 0 GM Hydroxyzine HCl (Hydroxyzine HCl) 25 Mg Tab 25 MG PO QID Ref 0 TAB Insulin Aspart Inj (Novolog Inj) 1,000 Unit/10 Ml Vial 0 SQ DIRECTED Sliding Scale as directed. Blood Sugar Management #10 Ref 0 ML Ketoconazole Topical (Ketoconazole Topical) 2% Foam 1 APPLIC TOPICAL 2XWEEK Fungal Infection #50 Ref 0 GM Lisinopril (Lisinopril) 2.5 Mg Tab 2.5 MG PO DAILY #30 Ref 0 TAB Metformin (Metformin) 500 Mg Tab 500 MG PO BIDPC With meals Blood Sugar Management #60 Ref 0 TAB Metoclopramide (Reglan) 5 Mg Tab 5 MG PO QID #120 Ref 0 TAB Metoprolol-Hydrochlorothiazide (Lopressor Hct) 50-25 Mg Tab 1 TAB PO DAILY Blood Pressure Management #30 Ref 0 TAB Mirtazapine (Mirtazapine) 15 Mg Tab 15 MG PO HS Depression Control #30 Ref 0 TAB Multiple Vitamin (Multiple Vitamin) 1 Tab 1 TAB PO DAILY Nutritional Supplement Ref 0 TAB Polysaccharide Iron Complex (Poly-Iron 150) 150 Mg Cap 150 MG PO DAILY Nutritional Supplement #30 Ref 0 CAP Potassium Chloride ER (Potassium Chloride ER) 20 Meq Tab 20 MEQ PO BID Electrolyte Replacement #60 Ref 0 TAB Tamsulosin (Flomax) 0.4 Mg Cap 0.4 MG PO HS Manage Prostate Problems #30 Ref 0 CAP Discontinued Medications: Hydrochlorothiazide (Hydrochlorothiazide) 12.5 Mg Cap 12.5 MG PO BID #60 Ref 0 CAP Jesus Manuel Galicia MD R1 September 18, 2016 15:17
== END 2016-09-18 17:36 | DRG 292 ==
LOC: NEPE 07:45 → NEDA 10:26 → N04B 15:25
PROVIDERS: ADMIT Family Medicine; ATTEND Family Medicine
DX: I11.0 Hypertensive heart disease with heart failure (principal); I69.251 Hemiplegia and hemiparesis following other nontraumatic intracranial hemorrhage affecting right dominant side; L89.151 Pressure ulcer of sacral region, stage 1; Z99.81 Dependence on supplemental oxygen; R13.10 Dysphagia, unspecified; I08.1 Rheumatic disorders of both mitral and tricuspid valves; I50.23 Acute on chronic systolic (congestive) heart failure; E11.9 Type 2 diabetes mellitus without complications; D64.9 Anemia, unspecified; I69.122 Dysarthria following nontraumatic intracerebral hemorrhage; F32.9 Major depressive disorder, single episode, unspecified; K21.9 Gastro-esophageal reflux disease without esophagitis; E78.5 Hyperlipidemia, unspecified; I25.10 Atherosclerotic heart disease of native coronary artery without angina pectoris; I69.191 Dysphagia following nontraumatic intracerebral hemorrhage; R21 Rash and other nonspecific skin eruption; M62.838 Other muscle spasm; N40.0 Benign prostatic hyperplasia without lower urinary tract symptoms; I73.9 Peripheral vascular disease, unspecified; Z79.4 Long term (current) use of insulin; Z79.84 Long term (current) use of oral hypoglycemic drugs; Z93.1 Gastrostomy status; Z89.512 Acquired absence of left leg below knee
CPT/HCPCS: 71010; 80048; 80053; 81001; 82550; 82948; 83605; 83735; 83880; 84484; 85025; 85610; 85730; 87040; 93005; 93306; 94664; 96374; J1650; J1815; J1940; P9612